=== PATIENT | male | born 1990 | race American Indian/Alaskan Native ===

== ENCOUNTER 2019-06-29 12:57 | Emergency (ER) | payer SELFPAY ==
--- NOTE | 2019-06-29 13:35 | Event Note ---
ED Screening Note ED Screening Note: came to the window stating he was signing in and then waiting outside nad This initial assessment/diagnostic orders/clinical plan/treatment(s) is/are subject to change based on patients health status, clinical progression and re- assessment by fellow clinical providers in the ED. Further treatment and workup at subsequent clinical providers discretion. Patient/guardian urged not to elope from the ED as their condition may be serious if not clinically assessed and managed. Initial orders include:
== END 2019-06-29 14:56 | disposition left against medical advice (07) ==
LOC: ED 12:57
DX: Z53.21 Procedure and treatment not carried out due to patient leaving prior to being seen by health care provider (principal)